=== PATIENT | male | born 1945 | race Caucasian/White ===

== ENCOUNTER → 2024-11-11 16:52 | Outpatient (REF) | payer OTHER, SELFPAY | LOC: RAD 16:52 | PROVIDERS: ATTENDING PHYSICIAN Ophthalmology; FAMILY PHYSICIAN Family Medicine | DX: G45.3 Amaurosis fugax (principal) | CPT/HCPCS: 70470; Q9967 ==

== ENCOUNTER → 2024-11-14 10:19 | Outpatient (REF) | payer OTHER, SELFPAY | LOC: HWRAD 10:19 | PROVIDERS: ATTENDING PHYSICIAN Ophthalmology; FAMILY PHYSICIAN Family Medicine | DX: G45.3 Amaurosis fugax (principal) | CPT/HCPCS: 93880 ==